=== PATIENT | male | born 1955 | race Caucasian/White ===

== ENCOUNTER → 2021-01-05 | Outpatient (CLI) | payer OTHER ==
[~2021-01-05] MED LIST: AMOX TR-K CLV1 EAC4 PO; ASPIRIN EC81 MG PO; CRESTOR 10 MG T10 MG PO; ELIQUIS 5 MG TAB5 MG PO; FISH OIL EC 1,1 EACH PO; NICOTINE PATCH1 EAC1 TD; NORFLEX 100 MG100 MG PO; ZESTRIL 40 MG T40 MG PO
== END ==
LOC: EXRD 01-04 08:00
DX: I73.9 Peripheral vascular disease, unspecified (principal); R93.6 Abnormal findings on diagnostic imaging of limbs; I65.23 Occlusion and stenosis of bilateral carotid arteries
CPT/HCPCS: 93880; 93922; 93925; 93979